=== PATIENT | male | born 2000 | race Caucasian/White ===

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

== ENCOUNTER 2022-09-17 12:29 | Emergency (ER) | payer BC, OTHER ==
[2022-09-17 12:35] VITALS: BP 137/94; PULSE 86; RESP 20; TEMP 98.4
[2022-09-17] MEDS ORDERED: LIDOCAINE/EPINEPHR/TETRACAINE 5 ML BOTTLE TOPICAL ONE (12:56)
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
== END 2022-09-17 14:26 | disposition home or self-care (01) ==
LOC: EC 12:29
DX: S01.01XA Laceration without foreign body of scalp, initial encounter (principal); V89.2XXA Person injured in unspecified motor-vehicle accident, traffic, initial encounter; Y92.410 Unspecified street and highway as the place of occurrence of the external cause
CPT/HCPCS: 12001; 70450; 72125; 99284